=== PATIENT | male | born 1990 | race African-American/Black ===

== ENCOUNTER 2019-10-23 23:25 | Emergency (ER) | payer SELFPAY ==
[~2019-10-23] VITALS: Ht 175.3 cm; Wt 71.0 kg
[2019-10-24 00:07] VITALS: BP 129/76
== END 2019-10-24 02:05 | disposition home or self-care (01) ==
LOC: ER 23:25
DX: J03.90 Acute tonsillitis, unspecified (principal); R03.0 Elevated blood-pressure reading, without diagnosis of hypertension
CPT/HCPCS: 99283